=== PATIENT | female | born 1975 | race Caucasian/White ===

== ENCOUNTER 2018-03-27 05:27 | Emergency (ER) | END 2018-03-27 10:00 | disposition home or self-care (01) ==

== ENCOUNTER 2018-11-30 20:51 | Emergency (ER) | payer BC ==
[~2018-11-30] VITALS: Wt 70.2 kg
[~2018-11-30 20:51] MED LIST: ASPI-817 PO; BACL10TA PO; CEPH-443 PO; CLON-429 PO; CYCL10TA7 PO; ESCI10TA PO; HYDR-4011 PO; LOSA25TA12 PO; NAPR-985 PO
--- NOTE | 2018-11-30 23:07 | ERD ---
ER Documentation Chief Complaint Chief Complaint AP HPI The patient is a 43-year-old female, presenting to the ER because of right upper quadrant abdominal pain that began around 3 AM today, associated with vomiting and diarrhea and subjective fever. She feels bloated and flatulence. She denies chills, neck pain, chest pain, dyspnea, dysuria. She was seen earlier today and discharged around 5 AM from [facility], where she had an abdominal CT scan that showed fatty liver, otherwise unremarkable. She went to see her doctor today who prescribed her pain medication antibiotic Cipro for unknown reason. She returned to the ER because of persistent abdominal pain and diarrhea. She does not drink, smokes socially Past medical history: Panic disorder, anxiety disorder, depression, hypertension, narcolepsy Past surgical history: Tubal ligation, 3 ROS All systems reviewed and are negative except as per history of present illness. Medications Home Meds Active Scripts Loperamide Hcl* (Imodium*) 2 Mg Capsule, 2 MG PO QID PRN for DIARRHEA, #20 CAP MAX 16 mg/day Prov:TEJAS MORALES MD 12/01/18 Ondansetron (Ondansetron Odt) 4 Mg Tab.rapdis, 4 MG PO Q6H PRN for NAUSEA AND/OR VOMITING, #10 TAB Prov:TEJAS MORALES MD 12/01/18 Cyclobenzaprine Hcl* (Cyclobenzaprine Hcl*) 10 Mg Tablet, 10 MG PO TID, #15 TAB Prov:ANA LAURA HERNANDEZ PA-C 03/27/18 Hydrocodone/Acetaminophen ([place] 5-325 Tablet) 1 Each Tablet, 1 TAB PO Q6H PRN for PAIN, #7 TAB Prov:ANA LAURA HERNANDEZ PA-C 03/27/18 Naproxen* (Naprosyn*) 500 Mg Tablet, 500 MG PO BID PRN for PAIN AND/OR INFLAMMA TION, #30 TAB Prov:ANA LAURA HERNANDEZ PA-C 03/27/18 Reported Medications Ergocalciferol (Vitamin D2) (VITAMIN D2) 2,000 Unit Tablet, 2000 UNIT PO, TAB 12/01/18 Iron,Carbonyl/Vit C/Vit B12/Fa (IRON 100 PLUS TABLET) 1 Each Tablet, 1 EACH PO, TAB 12/01/18 Ibuprofen* (Ibuprofen*) 800 Mg Tab, 800 MG PO BID PRN for PAIN, TAB 12/01/18 Amphet Xam-Kdrhtf-T-Amphet (Adderall) 30 Mg Tablet, 30 MG PO DAILY, TAB 12/01/18 Cephalexin* (Keflex*) 500 Mg Capsule, 500 MG PO QID, CAP 10/22/14 Aspirin* (Aspirin* EC) 81 Mg Tablet.dr, 81 MG PO DAILY, TAB 10/22/14 Baclofen* (Baclofen*) 10 Mg Tablet, 10 MG PO DAILY, TAB 10/22/14 Clonazepam* (Klonopin*) 0.5 Mg Tab, 0.5 MG PO QHS PRN for SLEEP, TAB 10/22/14 Escitalopram Oxalate* (Lexapro*) 10 Mg Tablet, 10 MG PO DAILY, TAB 10/22/14 Losartan Potassium* (Losartan Potassium*) 25 Mg Tablet, 25 MG PO DAILY, TAB 10/22/14 Allergies Allergies: Coded Allergies: No Known Drug Allergies (Verified Allergy, Mild, 03/27/18) PMhx/Soc History of Surgery: Yes (, TUBALIGATION) Anesthesia Reaction: No Hx Neurological Disorder: No Hx Respiratory Disorders: No Hx Cardiac Disorders: Yes (HTN) Hx Psychiatric Problems: Yes (ANXIETY) Hx Miscellaneous Medical Probl: Yes (PANIC ATTACKS, DEPRESSION) Hx Alcohol Use: Yes (SOCIALLY) Hx Substance Use: No Hx Tobacco Use: Yes Physical Exam Vitals Vital Signs Date Temp Pulse Resp B/P (MAP) Pulse Ox O2 O2 Flow FiO2 Time Delivery Rate 11/30/18 98.4 86 20 133/89 100 Room Air 23:30 (104) 11/30/18 96.8 79 18 135/91 100 20:55 (106) Physical Exam Const: No acute distress. Head: Atraumatic. Eyes: Normal Conjunctiva. ENT: Normal External Ears, Nose and Mouth. Neck: Full range of motion. No meningismus. Resp: Clear to auscultation bilaterally. Cardio: Regular rate and rhythm. Abd: Soft, non distended, normal bowel sounds, mild right upper quadrant tenderness, no rigidity, rebound or CVA tenderness Skin: No petechiae or rashes. Back: No midline or flank tenderness. Ext: No cyanosis, or edema. Neur: Awake and alert. No focal deficit Psych: Normal Mood and Affect. Result Diagram: 12/01/1811312/01/18113 Results 24 hrs Laboratory Tests Test 12/01/18 00:03 12/01/18 00:04 12/01/18 00:20 12/01/18 00:49 Bedside Urine pH 5.5 (LAB) Bedside Urine Negative Protein (LAB) Bedside Urine Negative Glucose (UA) Bedside Urine Negative Ketones (LAB) Bedside Urine Negative Blood Bedside Urine Negative Nitrite (LAB) Bedside Urine Negative Leukocyte Esteras e (L POC Beta HCG, NEGATIVE Qualitative White Blood Count 4.7 10^3/ul 6.3 10^3/ul Red Blood Count 2.37 10^6/ul 3.25 10^6/ul Hemoglobin 5.3 g/dl 7.3 g/dl Hematocrit 18.4 % 24.8 % Mean Corpuscular 77.6 fl 76.3 fl Volume Mean Corpuscular 22.4 pg 22.5 pg Hemoglobin Mean Corpuscular 28.8 g/dl 29.4 g/dl Hemoglobin Concen t Red Cell 15.8 % 15.8 % Distribution Width Platelet Count 183 10^3/UL 283 10^3/UL Mean Platelet 8.5 fl 8.8 fl Volume Immature 0.200 % 0.200 % Granulocytes % Neutrophils % 75.2 % 75.4 % Lymphocytes % 13.6 % 15.2 % Monocytes % 7.6 % 6.2 % Eosinophils % 3.2 % 2.7 % Basophils % 0.2 % 0.3 % Nucleated Red 0.0 /100WBC 0.0 /100WBC Blood Cells % Immature 0.010 10^3/ul 0.010 10^3/ul Granulocytes # Neutrophils # 3.6 10^3/ul 4.8 10^3/ul Lymphocytes # 0.6 10^3/ul 1.0 10^3/ul Monocytes # 0.4 10^3/ul 0.4 10^3/ul Eosinophils # 0.2 10^3/ul 0.2 10^3/ul Basophils # 0.0 10^3/ul 0.0 10^3/ul Nucleated Red 0.0 10^3/ul 0.0 10^3/ul Blood Cells # Sodium Level 164 mmol/L Potassium Level 1.5 mmol/L Chloride Level 125 mmol/L Carbon Dioxide 13 mmol/L Level Anion Gap 26 Blood Urea 9 mg/dl Nitrogen Creatinine 0.22 mg/dl Est Glomerular > 60 mL/min Filtrat Rate mL/min Glucose Level 43 mg/dl Calcium Level 3.6 mg/dl Total Bilirubin 0.0 mg/dl Direct Bilirubin 0.00 mg/dl Indirect 0.0 mg/dl Bilirubin Aspartate Amino 12 IU/L Transf (AST/SGOT) Alanine 21 IU/L Aminotransferase (ALT/SGPT) Alkaline 33 IU/L Phosphatase Total Protein 3.2 g/dl Albumin 1.4 g/dl Globulin 1.80 g/dl Albumin/Globulin 0.77 Ratio Lipase 23 U/L Test 12/01/18 01:14 12/01/18 01:18 White Blood Count 9.1 10^3/ul Red Blood Count 4.28 10^6/ul Hemoglobin 9.6 g/dl Hematocrit 32.6 % Mean Corpuscular 76.2 fl Volume Mean Corpuscular 22.4 pg Hemoglobin Mean Corpuscular 29.4 g/dl Hemoglobin Concen t Red Cell 15.9 % Distribution Width Platelet Count 434 10^3/UL Mean Platelet 9.9 fl Volume Immature 0.300 % Granulocytes % Neutrophils % 75.2 % Lymphocytes % 14.7 % Monocytes % 6.5 % Eosinophils % 3.1 % Basophils % 0.2 % Nucleated Red 0.0 /100WBC Blood Cells % Immature 0.030 10^3/ul Granulocytes # Neutrophils # 6.9 10^3/ul Lymphocytes # 1.3 10^3/ul Monocytes # 0.6 10^3/ul Eosinophils # 0.3 10^3/ul Basophils # 0.0 10^3/ul Nucleated Red 0.0 10^3/ul Blood Cells # Sodium Level 140 mmol/L Potassium Level 3.4 mmol/L Chloride Level 107 mmol/L Carbon Dioxide 24 mmol/L Level Anion Gap 9 Blood Urea 16 mg/dl Nitrogen Creatinine 0.59 mg/dl Est Glomerular > 60 mL/min Filtrat Rate mL/min Glucose Level 91 mg/dl Calcium Level 8.8 mg/dl Magnesium Level 1.8 mg/dl Total Bilirubin 0.0 mg/dl Direct Bilirubin 0.00 mg/dl Indirect 0.0 mg/dl Bilirubin Aspartate Amino 32 IU/L Transf (AST/SGOT) Alanine 18 IU/L Aminotransferase (ALT/SGPT) Alkaline 97 IU/L Phosphatase Total Protein 7.4 g/dl Albumin 4.0 g/dl Globulin 3.40 g/dl Albumin/Globulin 1.17 Ratio Bedside Glucose 88 mg/dL Current Medications Medications Dose Sig/Gisele Start Time Status Last (Trade) Ordered Route PRN Stop Time Admin Dose Reason Admin Sodium 1,000 ml @ Q1H STAT 11/30/18 DC 11/30/18 Chloride 1,000 mls/hr IV 23:26 23:45 12/01/18 00:25 Ondansetron 4 mg ONCE STAT 11/30/18 DC 11/30/18 HCl (Zofran IV 23:26 23:46 Inj) 11/30/18 23:28 Potassium 40 meq ONCE STAT 12/01/18 UNV Chloride PO 03:34 (Klor-Con 20) 12/01/18 03:35 Loperamide 4 mg ONCE ONCE 12/01/18 UNV HCl PO 04:00 (Imodium Cap) 12/01/18 04:01 Procedures/[place] [id number] Radiology Main Line: [phone] DIAGNOSTIC IMAGING REPORT Patient: NIKKIE VARELA : 1975 Age: 43 Sex: F MR #: [id number] DOS: 12/01/18 2331 Ordering MD: TEJAS MORALES MD Location: E/R Room/Bed: PROCEDURE: Abdominal ultrasound, limited. CLINICAL INDICATION: Abdominal pain. TECHNIQUE: Multiple real-time images were acquired of the patient's right upper abdomen utilizing a high resolution transducer. COMPARISON: None FINDINGS: The liver demonstrates increased echogenicity and size measuring 18.6 cm. There is no focal mass or intrahepatic biliary ductal dilatation. The portal vein is patent. The gallbladder is not distended. No gallstones are identified. There is no pericholecystic fluid or gallbladder wall thickening. The common bile duct measures 3.5 mm in maximal dimension. The visualized portions of the pancreas are unremarkable. The pancreas is partially obscured by overlying bowel gas. No free fluid is identified. The right kidney is normal size and echogenicity measuring 10.3 cm. There is no focal renal mass or echogenic calculus identified. There is no obstructive uropathy. IMPRESSION: Enlarged liver with fatty infiltration. Pancreas partially obscured by overlying bowel gas. .Suraj Matthews MD, MD Date Time Electronically viewed and signed by .Suraj Matthews MD, on 12/01/2018 02:05 .T/ CC: TEJAS MORALES MD [id number] MEDICAL MAKING DECISION: The patient is a 43-year-old female, presenting with acute vomiting and diarrhea. Initially the CBC and a CMP were very abnormal; however the repeat CBC and CMP are within normal limit except for slightly anemic and slightly hypokalemic. She was treated with 1 L normal saline for clinical dehydration, Zofran 4 mg IV for nausea, potassium chloride 40 mEq p.o. for acute hypokalemia and Imodium 4 mg p.o. for acute diarrhea with good response. She is stable for outpatient follow-up The differential diagnoses considered include but are not limited to acute food poisoning, colitis, cholelithiasis, cholecystitis, choledocholithiasis, cholangitis, pancreatitis, hepatitis, gastritis, peptic ulcer disease, gastric ulcer, appendicitis, cystitis, diverticulitis, partial small bowel obstruction. Departure Diagnosis: Primary Impression: Nausea vomiting and diarrhea Additional Impressions: Hypokalemia Anemia Condition: Good Comments She was discharged with Imodium and Zofran ODT I discussed the findings with the patient. I advised the patient to follow-up with the primary physician in about 1-2 days, sooner if needed and return if any concern. Disclaimer: Inadvertent spelling and grammatical errors are likely due to EHR/dictation software use and do not reflect on the overall quality of patient care. Also, please note that the electronic time recorded on this note does not necessarily reflect the actual time of the patient encounter. TEJAS MORALES MD Nov 30, 2018 23:07
[2018-11-30] MEDS ORDERED: SOD CHLORIDE 0.9% 1,000 ML IV STA (23:26)
[2018-11-30] MEDS ORDERED: ONDANSETRON 4 MG INJ IV STA (23:26)
[2018-11-30 23:30] VITALS: BP 133/89; PULSE 86; RESP 20
[2018-12-01] MEDS ORDERED: IBUP-1545 PO (02:47)
[2018-12-01] MEDS ORDERED: ERGO2000 PO (02:47)
[2018-12-01] MEDS ORDERED: IRON1TAB78 PO (02:47)
[2018-12-01] MEDS ORDERED: ADDE30 PO (02:47)
[2018-12-01] MEDS ORDERED: ONDA4TAB14 PO (03:37)
[2018-12-01] MEDS ORDERED: LOPE2CAP PO (03:38)
[2018-12-01] MEDS ORDERED: POTASSIUM CHLORIDE (SR) 20 MEQ TAB PO ONE (03:45)
[2018-12-01] MEDS ORDERED: LOPERAMIDE 2 MG CAP PO ONE (04:00)
[2018-12-01] MEDS ORDERED: ONDANSETRON (ODT) 4 MG TAB ODT STA (05:00)
== END 2018-12-01 05:10 | disposition home or self-care (01) ==
LOC: E/R 20:51
DX: R11.2 Nausea with vomiting, unspecified (principal); R19.7 Diarrhea, unspecified; E87.6 Hypokalemia; D64.9 Anemia, unspecified; I10 Essential (primary) hypertension; Z87.891 Personal history of nicotine dependence; Z79.82 Long term (current) use of aspirin
CPT/HCPCS: 36415; 76705; 80053; 81003; 81025; 82962; 83690; 83735; 85025; 96374; 99285; J2405; J7030; Z7610

== ENCOUNTER 2018-12-05 11:44 | Inpatient (IN) | payer BC ==
[~2018-12-05] VITALS: Ht 152.4 cm; Wt 72.9 kg
[~2018-12-05 11:44] MED LIST changes: +ADDE30 PO; +ERGO2000 PO; +IBUP-1545 PO; +IRON1TAB78 PO; +LOPE2CAP PO; +ONDA4TAB14 PO
[2018-12-05] MEDS ORDERED: CEFTRIAXONE 1 GM/50 ML (PMX) 50 ML IVPB STA (11:55)
[2018-12-05] MEDS ORDERED: AZITHROMYCIN 500MG/NS (PMX) 250 ML IV STA (11:55)
[2018-12-05] MEDS ORDERED: SODIUM CHLORIDE 0.9% 1L BAG IV* STA (11:55)
[2018-12-05] MEDS ORDERED: LIDOCAINE 1% (MPF) 5 ML VIAL SC ONE (13:30)
[2018-12-05] MEDS ORDERED: POTASSIUM CHLORIDE (SR) 20 MEQ TAB PO STA (13:44)
--- NOTE | 2018-12-05 13:44 | ERD ---
ER Documentation Chief Complaint Chief Complaint RECENTLY DIAGNOSED W/ PNA. HYPOTENSIVE AND WEAK. HPI Very pleasant 43-year-old female. The patient describes at least 5-6 days of nausea vomiting and diarrhea. This is followed by several days of cough and congestion with recent diagnosis of community-acquired pneumonia treated with potentially doxycycline. The patient states over the past 24 hours she has had generalized decline, generalized malaise and feeling lightheaded upon standing. She still has a cough that is slightly productive. She denies any chest pain or pressure, no abdominal pain. ROS All systems reviewed and are negative except as per history of present illness. Medications Home Meds Reported Medications Omeprazole* (Omeprazole*) 20 Mg Capsule.dr, 20 MG PO AC BREAKFAST, #30 CAP 12/05/18 Ergocalciferol (Vitamin D2) (VITAMIN D2) 2,000 Unit Tablet, 2000 UNIT PO, TAB 04/22/18 Iron Bis-Gly/Fa/C/B12/Ca/Succ (IRON 21/7 TABLET) 1 Each Tablet, 1 EACH PO, TAB 04/22/18 Aspirin Ec (Aspir 81) 81 Mg Tablet.dr, 81 MG PO DAILY, #30 TAB 04/22/18 Losartan Potassium* (Losartan Potassium*) 25 Mg Tablet, 25 MG PO DAILY, TAB 04/22/18 Amphet Bmm-Wovqrq-Y-Amphet (Adderall XR) 30 Mg Cap.sr.24h, 30 MG PO DAILY, CAP 04/22/18 Escitalopram Oxalate* (Lexapro*) 20 Mg Tablet, 20 MG PO DAILY, #30 TAB 04/22/18 Discontinued Reported Medications Doxycline Hyclate* (Vibramycin*) 100 Mg Soln, 100 MG IVPB Q12, EA DILUTED IN 250 ML 12/05/18 Allergies Allergies: Coded Allergies: No Known Allergy (Unverified , 12/05/18) PMhx/Soc History of Surgery: No Anesthesia Reaction: No Hx Neurological Disorder: No Hx Respiratory Disorders: No Hx Cardiac Disorders: Yes (HYPERLIPIDEMIA) Hx Psychiatric Problems: Yes (PTSD, ANXIETY) Hx Miscellaneous Medical Probl: Yes (DM) Hx Alcohol Use: Yes (SOMETIMES) Hx Substance Use: No Hx Tobacco Use: Yes Smoking Status: Current every day smoker FmHx Family History: No diabetes Physical Exam Vitals Vital Signs Date Temp Pulse Resp B/P (MAP) Pulse Ox O2 O2 Flow FiO2 Time Delivery Rate 12/05/18 97.6 80 20 78/49 (59) 100 Room Air 13:46 12/05/18 98.1 76 16 83/51 (62) 99 12:47 Physical Exam General: Well developed, well nourished, no acute distress Head: Normocephalic, atraumatic. Eyes: Pupils equally reactive, EOM intact ENT: Dry mucous membranes Neck: Supple, no lymphadenopathy Respiratory: Scant rhonchi at the bases, no distress Cardiovascular: RRR, no murmurs, rubs, or gallops Abdominal: Soft, non-tender, non-distended, no peritoneal signs : Deferred MSK: No edema, no unilateral swelling, 5/5 strength Neurologic: Alert and oriented, moving all extremities, normal speech, no focal weakness, no cerebellar signs Skin: No rash Psych: Normal mood Result Diagram: 12/05/18 1222 12/05/18 1221 Results 24 hrs Laboratory Tests Test 12/05/18 12:21 12/05/18 12:22 12/05/18 12:26 Sodium Level 142 mmol/L Potassium Level 3.1 mmol/L Chloride Level 102 mmol/L Carbon Dioxide Level 32 mmol/L Anion Gap 8 Blood Urea Nitrogen 10 mg/dl Creatinine 0.63 mg/dl Est Glomerular Filtrat > 60 mL/min Rate mL/min Glucose Level 90 mg/dl Calcium Level 8.2 mg/dl Total Bilirubin 0.0 mg/dl Direct Bilirubin 0.00 mg/dl Indirect Bilirubin 0.0 mg/dl Aspartate Amino Transf (AST/SGOT) 34 IU/L Alanine 27 IU/L Aminotransferase (ALT/SGPT) Alkaline Phosphatase 80 IU/L Troponin I < 0.012 ng/ml Total Protein 6.5 g/dl Albumin 3.3 g/dl Globulin 3.20 g/dl Albumin/Globulin Ratio 1.03 Lipase 100 U/L White Blood Count 3.4 10^3/ul Red Blood Count 4.11 10^6/ul Hemoglobin 9.1 g/dl Hematocrit 31.3 % Mean Corpuscular Volume 76.2 fl Mean Corpuscular Hemoglobin 22.1 pg Mean Corpuscular 29.1 g/dl Hemoglobin Concent Red Cell Distribution Width 15.9 % Platelet Count 265 10^3/UL Mean Platelet Volume 9.5 fl Immature Granulocytes % 0.300 % Neutrophils % 57.5 % Segmented Neutrophils % (Manual) 46 % Band Neutrophils % (Manual) 8 % Lymphocytes % 32.7 % Lymphocytes % (Manual) 35 % Reactive Lymphocytes % (Manual) 2 % Monocytes % 7.7 % Monocytes % (Manual) 5 % Eosinophils % 1.5 % Eosinophils % (Manual) 1 % Basophils % 0.3 % Basophils % (Manual) 3 % Nucleated Red Blood Cells % 0.0 /100WBC Immature Granulocytes # 0.010 10^3/ul Neutrophils # 1.9 10^3/ul Neutrophils # (Manual) 1.6 10^3/ul Band Neutrophils # 0.2 10^3/ul Lymphocytes (Manual) 1.1 10^3/ul Lymphocytes # 1.1 10^3/ul Reactive Lymphocytes # 0.0 10^3/ul Monocytes # 0.3 10^3/ul Monocytes # (Manual) 0.1 10^3/ul Eosinophils # 0.1 10^3/ul Basophils # 0.0 10^3/ul Basophils # (Manual) 0.1 10^3/ul Nucleated Red Blood Cells # 0.0 10^3/ul Platelet Estimate NORMAL Giant Platelets 1 % Polychromasia 3+ Hypochromasia 2+ Poikilocytosis 1+ Anisocytosis 2+ Microcytosis 2+ Prothrombin Time 11.9 Sec Prothrombin Time Ratio 0.9 INR International 0.87 Normalized Ratio Activated Partial Thromboplast 26.4 Sec Time POC Venous Lactate 2.2 mmol/L Current Medications Medications Dose Sig/Gisele Start Time Status Last (Trade) Ordered Route PRN Stop Time Admin Dose Reason Admin Sodium 2,400 ml BOLUS OVER 2 12/05/18 DC 12/05/18 Chloride HOURS STAT 11:55 12:50 (NS) IV* 12/05/18 11:58 Ceftriaxone 50 ml @ ONCE STAT 12/05/18 DC 12/05/18 Sodium 100 mls/hr IVPB 11:55 12:50 12/05/18 12:24 Azithromycin 250 ml @ ONCE STAT 12/05/18 DC 12/05/18 250 mls/hr IV 11:55 13:25 12/05/18 12:54 Lidocaine 5 ml ONCE ONCE 12/05/18 DC (Xylocaine SC 13:30 1% (Mpf)) 12/05/18 13:31 Potassium 20 meq ONCE STAT 12/05/18 DC Chloride PO 13:44 (Klor-Con 20) 12/05/18 13:46 Procedures/MDM EKG, MONITORS, & DIAGNOSTIC IMAGING: EKG: I reviewed and interpreted a 12-lead EKG. Rhythm: Normal sinus rhythm ST Changes: No contiguous ST segment elevations T waves: No contiguous T wave inversions Impression: [No evidence of acute cardiac ischemia] CXR RADIOLOGY IMPRESSION: 1. Poor inspiration with discoid atelectasis seen at the lung bases. 2. Degenerative enthesopathy of the thoracic spine. LAB INTERPRETATION: * White count slightly low at 3.4, hemoglobin 9.1 * Chemistry with slightly low potassium of 3.1, oral repletion given. Lactic acid slightly elevated at 2.2, normal troponin. MEDICAL DECISION MAKING: The patient's presentation is concerning for sepsis. The patient was recently diagnosed with pneumonia. She has low blood pressure. However clinically she is extremely well-appearing. I believe more likely this is consistent with dehydration in the setting of nausea vomiting diarrhea and URI type symptoms. However fluid resuscitation, sepsis screening would be most appropriate. ER COURSE: * A 30 cc/kg bolus of saline was initiated. Blood cultures prior to antibiotics. Ceftriaxone and azithromycin provided for coverage of community acquired pneumonia. * She has a benign abdominal exam without concern for acute intraconal process. No evidence of hemorrhagic process. * Blood pressure does remain low in the 80s. However the patient is mentating well and otherwise feels okay. Lactic acid is reassuring at 2.2. * I do not believe the patient requires a central line at this time however PICC line has been ordered. The patient is still undergoing fluid resuscitation I believe is dehydrated. The patient may require another liter after the 30 cc/kg bolus of saline given level of dehydration. * Because of the patient's persistence of symptoms and blood pressure issues I believe inpatient hospital station for closer monitoring would be appropriate. CONSULTATION: [None] DISPOSITION PLAN: Intensive care unit given blood pressures issue but if the blood pressure improves downgraded telemetry would be most appropriate Accepting care team and consultations: I discussed the current laboratory data, diagnostic imaging and emergency care provided. Admitting team: Dr. Weller Admitting team indication: Insurance directed Sepsis Documentation: Patient's infectious symptoms have not stabilized and the patient is at risk of rapid decompensation. The patient will be admitted for careful hydration, antibiotic therapy, and infectious source control. SEVERE SEPSIS CRITERIA: Infectious source: Community acquired pneumonia End organ damage indicated by: [Lactate > 2.0 mmol/L Hypotension (SBP < 90 or >40 mmHG drop or MAP < 65) SEPSIS MANAGEMENT Time of recognition of sepsis: [Upon MD assessment]. Time of recognition of severe sepsis: 12:26 PM Time of recognition of septic shock: No septic shock at this time, still pending fluid resuscitation efforts 3 HOUR BUNDLE Blood cultures x 2 before broad-spectrum antibiotics: [Yes] 30 ml/kg NS bolus still pending completion at 1:44 PM Initial lactate 2.2 Repeat lactate pending repeat SEPTIC SHOCK ASSESSMENT at 1:44 PM: [No] lactic acid > 4.0 [No] Persistent hypotension (SBP < 90 or 40 mmHg drop, MAP < 65) however still pending full 30 mL/kg IV fluid bolus VOLUME REASSESSMENT FOR SEPTIC SHOCK: Still has not received full 30cc/kg bolus. Reevaluation Time: 2:04 PM Temperature of 97.6, heart rate 80, respiratory rate 20, blood pressure 78/49 pulse ox 100% on room air Heart [Regular rate & rhythm] Lungs [No crackles] Skin [Warm & dry] Cap Refill [Less than 2 seconds] Peripheral pulses [Radially present] PERSISTENT HYPOTENSION TREATMENT: Comfort care [No] Central line PICC line has been ordered Vasopressor started [Not required] still undergoing fluid resuscitation I considered further perfusion assessment with CVP measurement, SCVO2, bedside ultrasound volume assessment, passive leg raise, trial of further fluid bolus. And proceeded with [30 ml/kg fluid bolus of NSS, broad spectrum antibiotics, and admission.] CRITICAL CARE Critical care time 40 minutes Emergent fluid management while maintaining close respiratory support. Provision of immediate and broad-spectrum antibiotic therapy. Simultaneous assessment for possible sources in order to direct targeted therapy. Consideration for invasive and chemical support to prevent cardiopulmonary collapse. Critical care time is independent of procedures performed. At this time the patient does not require pressors. Patient is still undergoing fluid resuscitation, she is mentating well and extremely well-appearing. PICC team is en route. Departure Diagnosis: Primary Impression: Community acquired pneumonia Laterality: unspecified laterality Qualified Codes: J18.9 - Pneumonia, unspecified organism Additional Impressions: Severe sepsis Hypokalemia Dehydration Condition: LAURA Avelar MD Dec 05, 2018 13:44
[2018-12-05 18:21] VITALS: PULSE 80
[2018-12-05 18:30] VITALS: BP 112/74; PULSE 79; RESP 19
[2018-12-05 18:38] VITALS: BP 91/53; PULSE 83; RESP 19
[2018-12-05 19:45] VITALS: BP 103/58; PULSE 86; RESP 19
[2018-12-05 20:00] VITALS: PULSE 86
[2018-12-05] MEDS ORDERED: LOPERAMIDE HCL 1 MG/5 ML LIQUID (10 ML UD CUP) PO PRN (20:30)
[2018-12-05] MEDS: CIPROFLOXACIN 400MG/D5W 200 ML IVPB SCH (22:13)
[2018-12-05 22:46] VITALS: Ht 152.4 cm; Wt 72.9 kg
[2018-12-05] MEDS: POTASSIUM CHLORIDE 30 MEQ in SOD CHLORIDE 0.9% 1,000 ML IV SCH (23:09)
[2018-12-05] MEDS: metroNIDAZOLE 500 MG/NS (PMX) 100 ML IVPB SCH (23:10)
--- NOTE | 2018-12-05 23:33 | HP ---
DATE OF ADMISSION: 12/05/2018 CHIEF COMPLAINT: Vomiting, diarrhea and syncope. HISTORY OF PRESENT ILLNESS: The patient is a 43-year-old female with history of hypertension, narcol epsy and iron deficient anemia due to menorrhagia. She was in her usual state of health until about a week ago, when she started having vomiting and diarrhea. She did not seek immediate medical advice and today, she was feeling weak and passed out. The patient also had cough and congestion, and was recently diagnosed with community-acquired pneumonia which was treated with oral antibiotic, details not available. The patient reported that she was also feeling dizzy upon standing. The patient did not have any bleeding from any site. No reported neck pain. No reported headache. The patient did have mild abdominal cramps. No reported leg edema. No reported dysuria or hematuria. No reported f ocal weakness. No reported paresthesias. The rest of the systems is unremarkable. The patient was in the ER, was found to have blood pressure of 78, systolic. She was afebrile. The patient's lactic acid level was 1.6. The patient was clinically dehydrated and had symptomatic hypertension. The pa tient was given 30 mL per kg IV fluid. The patient's blood pressure improved. The patient was admit marvin on telemetry. Lab evaluation revealed potassium 3.1, bicarbonate of 32, indicating contraction m etabolic alkalosis. Liver enzymes were normal. White count was 3.4. The patient has 8 bands. UA w as unremarkable. Chest x-ray was unremarkable. The patient is being admitted for further evaluation and management. PAST SURGICAL HISTORY: None. SOCIAL HISTORY: No smoking or alcohol. FAMILY HISTORY: Noncontributory. PHYSICAL EXAMINATION: GENERAL: The patient is awake, alert, fairly oriented. VITAL SIGNS: Upon arrival in the ER, temperature 97.6, pulse 80, respirations 20, blood pressure 78/ 49, O2 100% room air. HEENT: No eye discharge or redness. Conjunctivae normal. Oropharynx clear. NECK: Supple. No mass or thyromegaly. CHEST: Fairly clear. CARDIOVASCULAR: S1, S2 normal. No murmur. ABDOMEN: Soft, nondistended and nontender. EXTREMITIES: No leg edema. NEUROLOGIC: The patient is awake, alert, fairly oriented with no gross focal deficit. LABORATORY DATA: As above. In addition, the patient's BUN was 10, creatinine 0.6. IMPRESSION: 1. Acute gastroenteritis, possible viral syndrome, bacterial etiology cannot be ruled out. 2. Symptomatic hypotension secondary to hypovolemia. 3. History of hypertension. 4. History of narcolepsy. 5. History of iron deficit anemia due to menorrhagia. PLAN: The patient will be admitted on telemetry floor. The patient will be given IV fluid, IV Cipro , IV Flagyl and symptomatic treatment. Will replace potassium. The patient takes aspirin at home du e to history of angina, although she is not sure whether she has any definitive diagnosis of CAD. Th e patient also takes Lexapro for depression which will be continued. Further recommendation will dep end upon patient's hospital course. If patient's symptoms do not improve by tomorrow, will obtain a GI consultation. Dictated By: SCOUT VERNON/MAYRA Conf#: [id number] DID#: [id number]
[2018-12-06] VITALS (11 sets, daily range): BP systolic 103–136; BP diastolic 59–93; PULSE 72–97; RESP 18–20
[2018-12-06] MEDS: ALPRAZOLAM 0.25 MG TAB PO PRN ×3 (03:34→21:06)
[2018-12-06] MEDS: GUAIFENESIN/DM 5ML CUP PO PRN ×3 (03:34→22:18)
[2018-12-06] MEDS ORDERED: PANTOPRAZOLE (EC) 40 MG TAB PO ONE (04:27)
[2018-12-06] MEDS: PANTOPRAZOLE (EC) 40 MG TAB PO SCH (05:43)
[2018-12-06] MEDS: metroNIDAZOLE 500 MG/NS (PMX) 100 ML IVPB SCH ×3 (05:44→21:09)
[2018-12-06] MEDS: CIPROFLOXACIN 400MG/D5W 200 ML IVPB SCH ×2 (09:07→21:09)
[2018-12-06] MEDS: ESCITALOPRAM 10 MG TAB PO SCH (09:08)
[2018-12-06] MEDS ORDERED: POTASSIUM CHLORIDE 100 ML IVPB ONE (10:30)
[2018-12-06] MEDS ORDERED: POTASSIUM CHLORIDE 50 ML IVPB ONE (10:30)
[2018-12-06] MEDS: POTASSIUM CHLORIDE 30 MEQ in SOD CHLORIDE 0.9% 1,000 ML IV SCH ×2 (11:32→18:13)
[2018-12-06] MEDS: POTASSIUM CHLORIDE 50 ML IVPB SCH ×3 (12:48→18:36)
--- NOTE | 2018-12-06 12:53 | PN ---
Date/Time of Note Date/Time of Note DATE: 12/06/18 TIME: 12:52 Assessment/Plan VTE [place] [facility] [place]: 3 [place] [facility] [place] Yes Pharmacological prophylaxis: NA/contraindicated Pharm contraindication: bleeding Lines/Catheters IV C[facility]ter Type (from [facility]): Saline Lock Assessment/Plan Hospital Course Patient complains of occasional nausea denies any vomiting complains of generalized weakness, continue IV fluids and antibiotics, CBC and BMP tomorrow. Assessment/Plan - Acute gastroenteritis, possible viral syndrome, follow-up on stool for C. difficile - Symptomatic hypotension secondary to hypovolemia. - History of hypertension. - History of narcolepsy. - History of iron deficit anemia due to menorrhagia. Further recommendations based on clinical course. Plan of care discussed with Dr. Weller. Result Diagram: 12/05/18212412/05/182124 Results 24hrs Laboratory Tests Test 12/05/18 14:34 12/05/18 17:05 12/05/18 21:25 Urine Color STRAW Urine Clarity CLEAR Urine pH 6.0 Urine Specific [place] 1.004 Urine Ketones NEGATIVE Urine Nitrite NEGATIVE Urine Bilirubin NEGATIVE Urine Urobilinogen NEGATIVE Urine Leukocyte Esterase NEGATIVE Urine Hemoglobin NEGATIVE Urine Glucose NEGATIVE Urine Total Protein NEGATIVE POC Beta HCG, Qualitative NEGATIVE Lactic Acid Level 1.6 White Blood Count 3.0 L Red Blood Count 3.74 L Hemoglobin 8.4 L Hematocrit 28.2 L Mean Corpuscular Volume 75.4 L Mean Corpuscular Hemoglobin 22.5 L Mean Corpuscular Hemoglobin Concent 29.8 L Red Cell Distribution Width 15.8 H Platelet Count 249 Mean Platelet Volume 8.9 Immature Granulocytes % 0.300 Neutrophils % Segmented Neutrophils % (Manual) 39 Band Neutrophils % (Manual) 3 Lymphocytes % Lymphocytes % (Manual) 51 Monocytes % Monocytes % (Manual) 6 Eosinophils % Eosinophils % (Manual) 1 Basophils % Nucleated Red Blood Cells % 0.0 Immature Granulocytes # 0.010 Neutrophils # Neutrophils # (Manual) 1.2 L Band Neutrophils # 0.0 Lymphocytes (Manual) 1.5 Lymphocytes # Monocytes # Monocytes # (Manual) 0.1 L Eosinophils # Basophils # Nucleated Red Blood Cells # Platelet Estimate NORMAL Giant Platelets 2 H Polychromasia 1+ Anisocytosis 2+ Microcytosis 2+ Sodium Level 145 H Potassium Level 3.2 L Chloride Level 110 Carbon Dioxide Level 27 Anion Gap 8 Blood Urea Nitrogen 8 Creatinine 0.59 Est Glomerular Filtrat Rate mL/min > 60 Glucose Level 105 Calcium Level 7.6 L Magnesium Level 1.8 Exam/Review of Systems Vital Signs Vitals Vital Signs Date Temp Pulse Resp B/P (MAP) Pulse Ox O2 O2 Flow FiO2 Time Delivery Rate 12/06/18 98.3 74 18 133/92 98 Room Air 11:38 (106) Intake and Output 12/05/18 12/05/18 12/06/18 1515:00 23:00 07:00 IntakeIntake Total 50 ml 1352 ml BalanceBalance 50 ml 1352 ml Exam Constitutional: alert, oriented Head: normocephalic Neck: supple Respiratory: clear to auscultation Cardiovascular: regular rate and rhythm Gastrointestinal: soft, non-tender Extremities: normal pulses Neurological: nl mental status Skin: nl turgor Medications Medications Current Medications Escitalopram Oxalate (Lexapro) 20 mg DAILY PO Last administered on 12/06/18at 09:08; Admin Dose 20 MG; Start 12/06/18 at 09:00 Pantoprazole (Protonix Tab) 40 mg AC BREAKFAST PO Last administered on 12/06/18at 05:43; Admin Dose 40 MG; Start 12/06/18 at 07:00 Potassium Chloride 30 meq/ Sodium Chloride 1,015 ml @ 75 mls/hr [id number] IV Last administered on 12/05/18at 23:09; Admin Dose 75 MLS/HR; Start 12/05/18 at 22:00 Ciprofloxacin/ Dextrose 200 ml @ 200 mls/hr Q12 IVPB Last administered on 12/06/18at 09:07; Admin Dose 200 MLS/HR; Start 12/05/18 at 21:00 Metronidazole 100 ml @ 100 mls/hr Q8 IVPB Last administered on 12/06/18at 05:44; Admin Dose 100 MLS/HR; Start 12/05/18 at 22:00 Ondansetron HCl (Zofran Inj) 4 mg Q4H PRN IV NAUSEA AND/OR VOMITING; Start 12/05/18 at 20:30 Acetaminophen (Tylenol Tab) 650 mg Q4H PRN PO MILD PAIN(1-3)OR ELEVATED TEMP; Start 12/05/18 at 20:30 Loperamide HCl (Imodium) 4 mg Q4 PRN PO diarrhea; Start 12/05/18 at 20:30 Influenza Virus Vaccine Quadrival (Fluzone) 0.5 ml ONCE ONCE IM* ; Start 12/07/18 at 10:00; Stop 12/07/18 at 10:01 Alprazolam (Xanax) 0.25 mg Q6H PRN PO ANXIETY Last administered on 12/06/18at 03:34; Admin Dose 0.25 MG; Start 12/06/18 at 03:00 Guaifenesin/ Dextromethorphan (Robitussin Dm Liquid Cup) 10 ml Q4H PRN PO Cough Last administered on 12/06/18at 09:08; Admin Dose 10 ML; Start 12/06/18 at 03:00 IV Flush (NS 10 ml) 10 ml PRN PRN IV FLUSH LINE; Start 12/06/18 at 10:00 Potassium Chloride 50 ml @ 50 mls/hr Q1H IVPB ; Start 12/06/18 at 10:48; Stop 12/06/18 at 13:47 ZAINAB LIN Dec 06, 2018 12:53
[2018-12-06] MEDS: ACETAMINOPHEN 325 MG TAB PO PRN (22:24)
[2018-12-06] MEDS: KETOROLAC 30 MG INJ IV PRN (23:54)
[2018-12-07] VITALS (9 sets, daily range): BP systolic 121–130; BP diastolic 73–80; PULSE 59–74; RESP 18–20
[2018-12-07] MEDS: metroNIDAZOLE 500 MG/NS (PMX) 100 ML IVPB SCH ×3 (05:32→22:15)
[2018-12-07] MEDS: PANTOPRAZOLE (EC) 40 MG TAB PO SCH (05:32)
[2018-12-07] MEDS: KETOROLAC 30 MG INJ IV PRN (07:38)
[2018-12-07] MEDS: CIPROFLOXACIN 400MG/D5W 200 ML IVPB SCH ×2 (08:25→20:47)
[2018-12-07] MEDS: ESCITALOPRAM 10 MG TAB PO SCH (08:28)
[2018-12-07] MEDS ORDERED: INFLUENZA VIRUS VACCINE 0.5 ML (DISPENSING) IM* ONE (10:00)
--- NOTE | 2018-12-07 11:30 | PN ---
Date/Time of Note Date/Time of Note DATE: 12/07/18 TIME: 11:26 Assessment/Plan VTE Prophylaxis Risk score (from Ns)>0 risk: 4 SCD applied (from [facility] [place]): Yes Pharmacological prophylaxis: NA/contraindicated, other Pharm contraindication: other Lines/Catheters IV Catheter Type (from [facility]): PICC Line Central line still needed: Yes Assessment/Plan Hospital Course Patient's complaints of severe headache and currently was taken to MRI for MRI of the brain. Per JENNIFER Dowling, patient was able to tolerate diet no nausea and vomiting currently no diarrhea however patient has 6 BMs over the last 24 hours. Patient remains hemodynamically stable, afebrile. Assessment/Plan - Acute gastroenteritis, possible viral syndrome, follow-up on stool for C. diff icile. Continue Flagyl and Cipro. - Symptomatic hypotension secondary to hypovolemia. - History of hypertension. - History of narcolepsy. - History of iron deficit anemia due to menorrhagia. Further recommendations based on clinical course. Plan of care discussed with Dr. Weller. Result Diagram: 12/07/18 0529 12/07/18 0529 Results 24hrs Laboratory Tests Test 12/07/18 05:29 White Blood Count 3.8 #L Red Blood Count 3.43 L Hemoglobin 7.6 L Hematocrit 25.6 L Mean Corpuscular Volume 74.6 L Mean Corpuscular Hemoglobin 22.2 L Mean Corpuscular Hemoglobin Concent 29.7 L Red Cell Distribution Width 15.7 H Platelet Count 209 Mean Platelet Volume 9.5 Immature Granulocytes % 0.300 Neutrophils % Segmented Neutrophils % (Manual) 41 Band Neutrophils % (Manual) 6 H Lymphocytes % Lymphocytes % (Manual) 48 Monocytes % Monocytes % (Manual) 4 Eosinophils % Eosinophils % (Manual) 1 Basophils % Nucleated Red Blood Cells % 0.0 Immature Granulocytes # 0.010 Neutrophils # Neutrophils # (Manual) 1.6 Band Neutrophils # 0.2 Lymphocytes (Manual) 1.8 Lymphocytes # Monocytes # Monocytes # (Manual) 0.1 L Eosinophils # Basophils # Nucleated Red Blood Cells # Platelet Estimate NORMAL Giant Platelets 3 H Polychromasia 1+ Hypochromasia 1+ Poikilocytosis 1+ Anisocytosis 2+ Microcytosis 2+ Ovalocytes 1+ Sodium Level 136 Potassium Level 4.2 Chloride Level 103 Carbon Dioxide Level 28 Anion Gap 5 Blood Urea Nitrogen 10 Creatinine 0.51 Est Glomerular Filtrat Rate mL/min > 60 Glucose Level 98 Calcium Level 8.0 L Exam/Review of Systems Vital Signs Vitals Vital Signs Date Temp Pulse Resp B/P (MAP) Pulse Ox O2 O2 Flow FiO2 Time Delivery Rate 12/07/18 61 08:00 12/07/18 98.6 20 130/80 96 03:42 (97) 12/06/18 Room Air 15:59 Intake and Output 12/06/18 12/06/18 12/07/18 1414:59 22:59 06:59 IntakeIntake Total 200 ml 2100 ml 1490 ml BalanceBalance 200 ml 2100 ml 1490 ml Medications Medications Current Medications Escitalopram Oxalate (Lexapro) 20 mg DAILY PO Last administered on 12/07/18at 08:28; Admin Dose 20 MG; Start 12/06/18 at 09:00 Pantoprazole (Protonix Tab) 40 mg AC BREAKFAST PO Last administered on 12/07/18at 05:32; Admin Dose 40 MG; Start 12/06/18 at 07:00 Potassium Chloride 30 meq/ Sodium Chloride 1,015 ml @ 75 mls/hr [id number] IV Last administered on 12/06/18at 18:13; Admin Dose 75 MLS/HR; Start 12/05/18 at 22:00 Ciprofloxacin/ Dextrose 200 ml @ 200 mls/hr Q12 IVPB Last administered on 12/07/18at 08:25; Admin Dose 200 MLS/HR; Start 12/05/18 at 21:00 Metronidazole 100 ml @ 100 mls/hr Q8 IVPB Last administered on 12/07/18at 05:32; Admin Dose 100 MLS/HR; Start 12/05/18 at 22:00 Ondansetron HCl (Zofran Inj) 4 mg Q4H PRN IV NAUSEA AND/OR VOMITING; Start 12/05/18 at 20:30 Acetaminophen (Tylenol Tab) 650 mg Q4H PRN PO MILD PAIN(1-3)OR ELEVATED TEMP Last administered on 12/06/18at 22:24; Admin Dose 650 MG; Start 12/05/18 at 20:30 Loperamide HCl (Imodium) 4 mg Q4 PRN PO diarrhea; Start 12/05/18 at 20:30 Alprazolam (Xanax) 0.25 mg Q6H PRN PO ANXIETY Last administered on 12/06/18at 21:06; Admin Dose 0.25 MG; Start 12/06/18 at 03:00 Guaifenesin/ Dextromethorphan (Robitussin Dm Liquid Cup) 10 ml Q4H PRN PO Cough Last administered on 12/06/18at 22:18; Admin Dose 10 ML; Start 12/06/18 at 03:00 IV Flush (NS 10 ml) 10 ml PRN PRN IV FLUSH LINE; Start 12/06/18 at 10:00 Ketorolac Tromethamine (Toradol) 30 mg Q6H PRN IV PAIN LEVEL 1-3 Last administered on 12/07/18at 07:38; Admin Dose 30 MG; Start 12/07/18 at 00:00; Stop 12/10/18 at 00:00 ZAINAB LIN Dec 07, 2018 11:30
[2018-12-07] MEDS: POTASSIUM CHLORIDE 30 MEQ in SOD CHLORIDE 0.9% 1,000 ML IV SCH (14:36)
[2018-12-07] MEDS: ACETAMINOPHEN 325 MG TAB PO PRN ×2 (15:16→21:30)
[2018-12-07] MEDS: ALPRAZOLAM 0.25 MG TAB PO PRN (15:53)
[2018-12-07] MEDS: ONDANSETRON 4 MG INJ IV PRN ×2 (15:53→21:28)
[2018-12-08] VITALS (10 sets, daily range): BP systolic 102–127; BP diastolic 57–65; PULSE 59–88; RESP 16–18
[2018-12-08] MEDS: KETOROLAC 30 MG INJ IV PRN ×2 (03:13→17:03)
[2018-12-08] MEDS: POTASSIUM CHLORIDE 30 MEQ in SOD CHLORIDE 0.9% 1,000 ML IV SCH ×2 (05:18→17:21)
[2018-12-08] MEDS: PANTOPRAZOLE (EC) 40 MG TAB PO SCH (06:14)
[2018-12-08] MEDS: metroNIDAZOLE 500 MG/NS (PMX) 100 ML IVPB SCH ×2 (06:14→13:23)
[2018-12-08] MEDS: CIPROFLOXACIN 400MG/D5W 200 ML IVPB SCH (07:56)
[2018-12-08] MEDS: ESCITALOPRAM 10 MG TAB PO SCH (07:57)
[2018-12-08] MEDS: ALPRAZOLAM 0.25 MG TAB PO PRN (10:38)
[2018-12-08] MEDS: ONDANSETRON 4 MG INJ IV PRN (10:38)
[2018-12-08] MEDS: SOLIFENACIN 5 MG TAB PO SCH (14:04)
--- NOTE | 2018-12-08 14:15 | PN ---
Date/Time of Note Date/Time of Note DATE: 12/08/18 TIME: 14:14 Assessment/Plan VTE Prophylaxis [place] [facility] [place] risk: 3 SCD applied (from [facility] [place]): No SCD contraindicated: other Pharmacological prophylaxis: other Pharm contraindication: other Lines/Catheters IV Catheter Type (from [facility]): PICC Line Central line still needed: Yes Assessment/Plan Assessment/Plan - Acute gastroenteritis, possible viral syndrome, follow-up on stool for C. d ifficile. Continue Flagyl and Cipro. - Symptomatic hypotension secondary to hypovolemia. - History of hypertension. - History of narcolepsy. - History of iron deficit anemia due to menorrhagia. Further recommendations based on clinical course. Plan of care discussed with Dr. Weller. Result Diagram: 12/08/18 0516 12/08/18 0516 Results 24hrs Laboratory Tests Test 12/08/18 05:16 White Blood Count 4.2 L Red Blood Count 3.59 L Hemoglobin 7.9 L Hematocrit 26.7 L Mean Corpuscular Volume 74.4 L Mean Corpuscular Hemoglobin 22.0 L Mean Corpuscular Hemoglobin Concent 29.6 L Red Cell Distribution Width 15.2 H Platelet Count 238 Mean Platelet Volume 9.9 Immature Granulocytes % 0.200 Neutrophils % 52.9 Lymphocytes % 37.6 Monocytes % 6.2 Eosinophils % 2.9 Basophils % 0.2 Nucleated Red Blood Cells % 0.0 Immature Granulocytes # 0.010 Neutrophils # 2.2 Lymphocytes # 1.6 Monocytes # 0.3 Eosinophils # 0.1 Basophils # 0.0 Nucleated Red Blood Cells # 0.0 Sodium Level 137 Potassium Level 3.5 Chloride Level 102 Carbon Dioxide Level 28 Anion Gap 7 Blood Urea Nitrogen 14 Creatinine 0.57 Est Glomerular Filtrat Rate mL/min > 60 Glucose Level 114 Calcium Level 7.8 L Exam/Review of Systems Vital Signs Vitals Vital Signs Date Temp Pulse Resp B/P (MAP) Pulse Ox O2 O2 Flow FiO2 Time Delivery Rate 12/08/18 67 12:00 12/08/18 98.3 16 127/65 96 11:43 (85) 12/06/18 Room Air 15:59 Intake and Output 12/07/18 12/07/18 12/08/18 1414:59 22:59 06:59 IntakeIntake Total 300 ml 500 ml 1400 ml BalanceBalance 300 ml 500 ml 1400 ml Medications Medications Current Medications Escitalopram Oxalate (Lexapro) 20 mg DAILY PO Last administered on 12/08/18 07:57; Admin Dose 20 MG; Start 12/06/18 at 09:00 Pantoprazole (Protonix Tab) 40 mg AC BREAKFAST PO Last administered on 12/08/18 06:14; Admin Dose 40 MG; Start 12/06/18 at 07:00 Potassium Chloride 30 meq/ Sodium Chloride 1,015 ml @ 75 mls/hr [id number] IV Last administered on 12/08/18 05:18; Admin Dose 75 MLS/HR; Start 12/05/18 at 22:00 Ciprofloxacin/ Dextrose 200 ml @ 200 mls/hr Q12 IVPB Last administered on 12/08/18 07:56; Admin Dose 200 MLS/HR; Start 12/05/18 at 21:00 Metronidazole 100 ml @ 100 mls/hr Q8 IVPB Last administered on 12/08/18 13:23; Admin Dose 100 MLS/HR; Start 12/05/18 at 22:00 Ondansetron HCl (Zofran Inj) 4 mg Q4H PRN IV NAUSEA AND/OR VOMITING Last administered on 12/08/18 10:38; Admin Dose 4 MG; Start 12/05/18 at 20:30 Acetaminophen (Tylenol Tab) 650 mg Q4H PRN PO MILD PAIN(1-3)OR ELEVATED TEMP Last administered on 12/07/18 21:30; Admin Dose 650 MG; Start 12/05/18 at 20:30 Loperamide HCl (Imodium) 4 mg Q4 PRN PO diarrhea; Start 12/05/18 at 20:30 Alprazolam (Xanax) 0.25 mg Q6H PRN PO ANXIETY Last administered on 12/08/18 10:38; Admin Dose 0.25 MG; Start 12/06/18 at 03:00 Guaifenesin/ Dextromethorphan (Robitussin Dm Liquid Cup) 10 ml Q4H PRN PO Cough Last administered on 12/06/18 22:18; Admin Dose 10 ML; Start 12/06/18 at 03:00 IV Flush (NS 10 ml) 10 ml PRN PRN IV FLUSH LINE; Start 12/06/18 at 10:00 Ketorolac Tromethamine (Toradol) 30 mg Q6H PRN IV PAIN LEVEL 1-3 Last administered on 12/08/18 03:13; Admin Dose 30 MG; Start 12/07/18 at 00:00; Stop 12/10/18 at 00:00 Solifenacin (Vesicare) 10 mg DAILY PO Last administered on 12/08/18at 14:04; Admin Dose 10 MG; Start 12/08/18 at 13:00 JEANNETTE WESTFALL Dec 08, 2018 14:15
[2018-12-08] MEDS: CIPROFLOXACIN 500 MG TAB PO SCH (17:21)
[2018-12-08] MEDS: metroNIDAZOLE 500 MG TAB PO SCH (21:28)
[2018-12-09] VITALS (11 sets, daily range): BP systolic 101–125; BP diastolic 54–76; PULSE 55–72; RESP 16–20
[2018-12-09] MEDS: ALPRAZOLAM 0.25 MG TAB PO PRN ×2 (00:20→22:30)
[2018-12-09] MEDS: KETOROLAC 30 MG INJ IV PRN (00:24)
[2018-12-09] MEDS: POTASSIUM CHLORIDE 30 MEQ in SOD CHLORIDE 0.9% 1,000 ML IV SCH (05:49)
[2018-12-09] MEDS: CIPROFLOXACIN 500 MG TAB PO SCH ×2 (05:49→17:31)
[2018-12-09] MEDS: PANTOPRAZOLE (EC) 40 MG TAB PO SCH (07:19)
[2018-12-09] MEDS: metroNIDAZOLE 500 MG TAB PO SCH ×3 (08:33→20:47)
[2018-12-09] MEDS: SOLIFENACIN 5 MG TAB PO SCH (08:33)
[2018-12-09] MEDS: ESCITALOPRAM 10 MG TAB PO SCH (08:33)
[2018-12-09] MEDS: FERROUS SULFATE (EC) 325 MG TAB PO SCH ×2 (12:25→20:47)
--- NOTE | 2018-12-09 16:56 | PN ---
Date/Time of Note Date/Time of Note DATE: 12/09/18 TIME: 16:55 Assessment/Plan VTE Prophylaxis Risk score (from [facility])>0 risk: 4 SCD applied (from [facility]): No Lines/Catheters IV Catheter Type (from [facility]): PICC Line Assessment/Plan Assessment/Plan - Acute gastroenteritis, possible viral syndrome, follow-up on stool for C. difficile. Continue Flagyl and Cipro. - Symptomatic hypotension secondary to hypovolemia. - History of hypertension. - History of narcolepsy. - History of iron deficit anemia due to menorrhagia. Further recommendations based on clinical course. Plan of care discussed with Dr. Weller. Result Diagram: 12/09/18 0549 12/09/18 0549 Results 24hrs Laboratory Tests Test 12/09/18 05:49 White Blood Count 5.3 # Red Blood Count 3.78 L Hemoglobin 8.2 L Hematocrit 27.9 L Mean Corpuscular Volume 73.8 L Mean Corpuscular Hemoglobin 21.7 L Mean Corpuscular Hemoglobin Concent 29.4 L Red Cell Distribution Width 15.5 H Platelet Count 278 Mean Platelet Volume 10.1 Immature Granulocytes % 0.600 H Neutrophils % 47.9 Lymphocytes % 41.0 Monocytes % 7.1 Eosinophils % 3.0 Basophils % 0.4 Nucleated Red Blood Cells % 0.0 Immature Granulocytes # 0.030 Neutrophils # 2.6 Lymphocytes # 2.2 Monocytes # 0.4 Eosinophils # 0.2 Basophils # 0.0 Nucleated Red Blood Cells # 0.0 Sodium Level 136 Potassium Level 4.2 Chloride Level 103 Carbon Dioxide Level 27 Anion Gap 6 Blood Urea Nitrogen 15 Creatinine 0.58 Est Glomerular Filtrat Rate mL/min > 60 Glucose Level 93 Calcium Level 8.1 L Exam/Review of Systems Vital Signs Vitals Vital Signs Date Temp Pulse Resp B/P (MAP) Pulse Ox O2 O2 Flow FiO2 Time Delivery Rate 12/09/18 98.0 64 20 101/60 98 16:00 (74) 12/06/18 Room Air 15:59 Intake and Output 12/08/18 12/08/18 12/09/18 1414:59 22:59 06:59 IntakeIntake Total 100 ml 2250 ml 1250 ml BalanceBalance 100 ml 2250 ml 1250 ml Medications Medications Current Medications Escitalopram Oxalate (Lexapro) 20 mg DAILY PO Last administered on 12/09/18 08:33; Admin Dose 20 MG; Start 12/06/18 at 09:00 Pantoprazole (Protonix Tab) 40 mg AC BREAKFAST PO Last administered on 12/09/18 07:19; Admin Dose 40 MG; Start 12/06/18 at 07:00 Potassium Chloride 30 meq/ Sodium Chloride 1,015 ml @ 75 mls/hr [id number] IV Last administered on 12/09/18 05:49; Admin Dose 75 MLS/HR; Start 12/05/18 at 22:00 Ondansetron HCl (Zofran Inj) 4 mg Q4H PRN IV NAUSEA AND/OR VOMITING Last administered on 12/08/18 10:38; Admin Dose 4 MG; Start 12/05/18 at 20:30 Acetaminophen (Tylenol Tab) 650 mg Q4H PRN PO MILD PAIN(1-3)OR ELEVATED TEMP Last administered on 12/07/18 21:30; Admin Dose 650 MG; Start 12/05/18 at 20:30 Loperamide HCl (Imodium) 4 mg Q4 PRN PO diarrhea; Start 12/05/18 at 20:30 Alprazolam (Xanax) 0.25 mg Q6H PRN PO ANXIETY Last administered on 12/09/18 00:20; Admin Dose 0.25 MG; Start 12/06/18 at 03:00 Guaifenesin/ Dextromethorphan (Robitussin Dm Liquid Cup) 10 ml Q4H PRN PO Cough Last administered on 12/06/18 22:18; Admin Dose 10 ML; Start 12/06/18 at 03:00 IV Flush (NS 10 ml) 10 ml PRN PRN IV FLUSH LINE; Start 12/06/18 at 10:00 Ketorolac Tromethamine (Toradol) 30 mg Q6H PRN IV PAIN LEVEL 1-3 Last administered on 12/09/18 00:24; Admin Dose 30 MG; Start 12/07/18 at 00:00; Stop 12/10/18 at 00:00 Solifenacin (Vesicare) 10 mg DAILY PO Last administered on 12/09/18 08:33; Admin Dose 10 MG; Start 12/08/18 at 13:00 Ciprofloxacin (Cipro) 500 mg BID@06,18 PO Last administered on 12/09/18at 05:49; Admin Dose 500 MG; Start 12/08/18 at 18:00 Metronidazole (Flagyl) 500 mg TID PO Last administered on 12/09/18at 12:25; Admin Dose 500 MG; Start 12/08/18 at 21:00 Ferrous Sulfate (Ferrous Sulfate (Ec)) 325 mg BID PO Last administered on 12/09/18at 12:25; Admin Dose 325 MG; Start 12/09/18 at 10:30 JEANNETTE WESTFALL Dec 09, 2018 16:56
[2018-12-09] MEDS: ONDANSETRON 4 MG INJ IV PRN (19:48)
[2018-12-09] MEDS ORDERED: ALTEPLASE (CATHFLO) 2 MG INJ CATHETER PRN (23:30)
[2018-12-10] VITALS (11 sets, daily range): BP systolic 89–123; BP diastolic 50–76; PULSE 58–120; RESP 17–18
[2018-12-10] MEDS: CIPROFLOXACIN 500 MG TAB PO SCH (07:25)
[2018-12-10] MEDS: PANTOPRAZOLE (EC) 40 MG TAB PO SCH (07:25)
[2018-12-10] MEDS: metroNIDAZOLE 500 MG TAB PO SCH ×2 (09:06→12:09)
[2018-12-10] MEDS: SOLIFENACIN 5 MG TAB PO SCH (09:06)
[2018-12-10] MEDS: FERROUS SULFATE (EC) 325 MG TAB PO SCH (09:06)
[2018-12-10] MEDS: ESCITALOPRAM 10 MG TAB PO SCH (09:07)
--- NOTE | 2018-12-10 15:08 | DS ---
Date/Time of Note Date/Time of Note DATE: 12/10/18 TIME: 15:08 Discharge Summary Admission/Discharge Info Admit Date/Time Dec 05, 2018 at 14:03 Discharge Date/Time Home Meds Active Scripts Loperamide Hcl* (Imodium*) 2 Mg Capsule, 2 MG PO QID PRN for DIARRHEA, #20 CAP MAX 16 mg/day Prov:TEJAS MORALES MD 12/01/18 Ondansetron (Ondansetron Odt) 4 Mg Tab.rapdis, 4 MG PO Q6H PRN for NAUSEA AND/OR VOMITING, #10 TAB Prov:TEJAS MORALES MD 12/01/18 Cyclobenzaprine Hcl* (Cyclobenzaprine Hcl*) 10 Mg Tablet, 10 MG PO TID, #15 TAB Prov:ANA LAURA HERNANDEZ PA-C 03/27/18 Hydrocodone/Acetaminophen ([place] 5-325 Tablet) 1 Each Tablet, 1 TAB PO Q6H PRN for PAIN, #7 TAB Prov:ANA LAURA HERNANDEZ PA-C 03/27/18 Naproxen* (Naprosyn*) 500 Mg Tablet, 500 MG PO BID PRN for PAIN AND/OR INFLAMMATION, #30 TAB Prov:ANA LAURA HERNANDEZ PA-C 03/27/18 Reported Medications Ergocalciferol (Vitamin D2) (VITAMIN D2) 2,000 Unit Tablet, 2000 UNIT PO, TAB 12/01/18 Iron,Carbonyl/Vit C/Vit B12/Fa (IRON 100 PLUS TABLET) 1 Each Tablet, 1 EACH PO, TAB 12/01/18 Ibuprofen* (Ibuprofen*) 800 Mg Tab, 800 MG PO BID PRN for PAIN, TAB 12/01/18 Amphet Goy-Tvpfmz-W-Amphet (Adderall) 30 Mg Tablet, 30 MG PO DAILY, TAB 12/01/18 Cephalexin* (Keflex*) 500 Mg Capsule, 500 MG PO QID, CAP 10/22/14 Aspirin* (Aspirin* EC) 81 Mg Tablet.dr, 81 MG PO DAILY, TAB 10/22/14 Baclofen* (Baclofen*) 10 Mg Tablet, 10 MG PO DAILY, TAB 10/22/14 Clonazepam* (Klonopin*) 0.5 Mg Tab, 0.5 MG PO QHS PRN for SLEEP, TAB 10/22/14 Escitalopram Oxalate* (Lexapro*) 10 Mg Tablet, 10 MG PO DAILY, TAB 10/22/14 Losartan Potassium* (Losartan Potassium*) 25 Mg Tablet, 25 MG PO DAILY, TAB 10/22/14 Primary Care Provider JEANNETTE WESTFALL Dec 10, 2018 15:08
--- NOTE | 2018-12-10 15:23 | PDOCDIS ---
Discharge Instructions CONDITION [id number] Patient Condition: [id number] Stable HOME CARE INSTRUCTIONS: [id number] Diet Instructions: [id number] Regular [id number] Special Diet: [id number] Regular ACTIVITY: [id number] Activity Restrictions: [id number] Slowly Increase Activity Rest between Activity Do not Drive Do not operate Machinery Do not operate Power Tool Avoid Heavy Housework [id number] Bathing Restrictions: [id number] Sponge Bath FOLLOW UP/APPOINTMENTS Follow-up Plan - FU with Primary MD in 1 week - Call 911 or go to the nearest hospital if symptoms get worse.Patient verbalized understanding dc instructions - staff / JEANNETTE Aguiar Dec 10, 2018 15:18
== END 2018-12-10 17:20 | disposition home or self-care (01) | DRG 392 ==
LOC: E/R 11:44 → MERGE 14:03 → 6WM 14:03 → CANRESERV 15:32 → EDBEDREQSVC 17:35
PROVIDERS: ADMIT Internal Medicine; ATTEND Internal Medicine
PROC: 02H633Z Insertion of Infusion Device into Right Atrium, Percutaneous Approach (ICD-10-PCS; principal; 2018-12-05)
PROC: B244ZZZ Ultrasonography of Right Heart (ICD-10-PCS; 2018-12-05)
DX: A08.4 Viral intestinal infection, unspecified (principal); I95.89 Other hypotension; F17.210 Nicotine dependence, cigarettes, uncomplicated; E86.0 Dehydration; E87.6 Hypokalemia; D50.9 Iron deficiency anemia, unspecified; E86.1 Hypovolemia; I10 Essential (primary) hypertension; G47.419 Narcolepsy without cataplexy; N92.0 Excessive and frequent menstruation with regular cycle; R53.1 Weakness; R51 Headache
CPT/HCPCS: 36415; 36569; 70551; 71045; 76937; 80048; 80053; 81003; 81025; 83605; 83690; 83735; 84484; 85025; 85610; 85730; 87040; 87045; 87075; 87086; 87177; 87400; 90686; 93005; 96365; 96375; J0456; J0696; J0744; J1885; J2405; J3480; J7030

== ENCOUNTER 2018-12-13 20:27 | Emergency (ER) | payer SELFPAY ==
[~2018-12-13 20:27] MED LIST changes: -CEPH-443 PO
== END 2018-12-13 20:55 | disposition left against medical advice (07) ==
LOC: E/R 20:27
DX: Z53.21 Procedure and treatment not carried out due to patient leaving prior to being seen by health care provider (principal)

== ENCOUNTER 2018-12-17 00:24 | Emergency (ER) | payer BC ==
[~2018-12-17] VITALS: Ht 152.4 cm; Wt 67.9 kg
[2018-12-17 00:33] VITALS: Ht 152.4 cm; Wt 67.9 kg
[2018-12-17] MEDS ORDERED: LIDOCAINE/MYLANTA 40 ML BTL PO STA (01:43)
[2018-12-17] MEDS ORDERED: KETOROLAC 30 MG INJ IM STA (01:43)
[2018-12-17] MEDS ORDERED: BELLADONNA/PHENOBARBITAL TAB PO STA (01:43)
[2018-12-17] MEDS ORDERED: DICY10CA40 PO (02:11)
[2018-12-17] MEDS ORDERED: IBUP-1542 PO (02:11)
--- NOTE | 2018-12-17 02:30 | ERD ---
ER Documentation Chief Complaint Chief Complaint LT UPPER AP W/ NAUSEA AND DIARRHEA TODAY, RT LEG PAIN AND SWELLING X2 DAYS HPI 43-year-old woman complains of right lower extremity swelling times 1 week, she is also had a couple days of loose stools and nausea but denies vomiting. She denies fevers or chills, no recent antibiotic use, no recent travel, no chest pain or shortness of breath. Patient denies blood per rectum or melena. ROS All systems reviewed and are negative except as per history of present illness. Medications Home Meds Active Scripts Ibuprofen* (Motrin*) 600 Mg Tab, 600 MG PO Q8 PRN for PAIN AND/OR INFLAMMATION, #30 TAB Prov:BETTY MCMILLAN MD 12/17/18 Dicyclomine HCl (Dicyclomine HCl) 10 Mg Capsule, 10 MG PO BID PRN for ABDOMINAL CRAMPING, #20 CAP Prov:BETYT MCMILLAN MD 12/17/18 Loperamide Hcl* (Imodium*) 2 Mg Capsule, 2 MG PO QID PRN for DIARRHEA, #20 CAP MAX 16 mg/day Prov:TEJAS MORALES MD 12/01/18 Ondansetron (Ondansetron Odt) 4 Mg Tab.rapdis, 4 MG PO Q6H PRN for NAUSEA AND/OR VOMITING, #10 TAB Prov:TEJAS MORALES MD 12/01/18 Cyclobenzaprine Hcl* (Cyclobenzaprine Hcl*) 10 Mg Tablet, 10 MG PO TID, #15 TAB Prov:ANA LAURA HERNANDEZ PA-C 03/27/18 Hydrocodone/Acetaminophen ([place] 5-325 Tablet) 1 Each Tablet, 1 TAB PO Q6H PRN for PAIN, #7 TAB Prov:ANA LAURA HERNANDEZ PA-C 03/27/18 Naproxen* (Naprosyn*) 500 Mg Tablet, 500 MG PO BID PRN for PAIN AND/OR INFLAMMATION, #30 TAB Prov:ANA LAURA HERNANDEZ PA-C 03/27/18 Reported Medications Ergocalciferol (Vitamin D2) (VITAMIN D2) 2,000 Unit Tablet, 2000 UNIT PO, TAB 12/01/18 Iron,Carbonyl/Vit C/Vit B12/Fa (IRON 100 PLUS TABLET) 1 Each Tablet, 1 EACH PO, TAB 12/01/18 Ibuprofen* (Ibuprofen*) 800 Mg Tab, 800 MG PO BID PRN for PAIN, TAB 12/01/18 Amphet Idy-Jhaqjn-P-Amphet (Adderall) 30 Mg Tablet, 30 MG PO DAILY, TAB 12/01/18 Aspirin* (Aspirin* EC) 81 Mg Tablet.dr, 81 MG PO DAILY, TAB 10/22/14 Baclofen* (Baclofen*) 10 Mg Tablet, 10 MG PO DAILY, TAB 10/22/14 Clonazepam* (Klonopin*) 0.5 Mg Tab, 0.5 MG PO QHS PRN for SLEEP, TAB 10/22/14 Escitalopram Oxalate* (Lexapro*) 10 Mg Tablet, 10 MG PO DAILY, TAB 10/22/14 Losartan Potassium* (Losartan Potassium*) 25 Mg Tablet, 25 MG PO DAILY, TAB 10/22/14 Discontinued Reported Medications Cephalexin* (Keflex*) 500 Mg Capsule, 500 MG PO QID, CAP 10/22/14 Allergies Allergies: Coded Allergies: No Known Drug Allergies (Verified Allergy, Mild, 03/27/18) No Known Allergies (Verified Allergy, Unknown, 12/07/18) PMhx/Soc Hypertension History of Surgery: Yes (c/section x3) Anesthesia Reaction: No Hx Neurological Disorder: Yes (minor stroke/TIA 2013) Hx Respiratory Disorders: Yes (PNA) Hx Cardiac Disorders: Yes (htn) Hx Psychiatric Problems: Yes (PTSD, anxiety) Hx Miscellaneous Medical Probl: Yes (hypoglycemia) Hx Alcohol Use: No Hx Substance Use: No Hx Tobacco Use: No Smoking Status: Current some day smoker FmHx Family History: No diabetes Physical Exam Vitals Vital Signs Date Temp Pulse Resp B/P (MAP) Pulse Ox O2 O2 Flow FiO2 Time Delivery Rate 12/17/18 97.8 88 18 105/67 98 00:33 (80) Physical Exam Const: No acute distress Head: Atraumatic Eyes: Normal Conjunctiva ENT: Normal External Ears, Nose and Mouth. Neck: Full range of motion. No meningismus. Resp: Clear to auscultation bilaterally Cardio: Regular rate and rhythm, no murmurs Abd: Soft, non tender, non distended. Skin: No petechiae or rashes Back: No midline or flank tenderness Ext: No cyanosis, 1+ peripheral edema to the right lower extremity, left lower extremity is without edema, no popliteal cords sign, no Homans sign Neur: Awake and alert x3, no focal deficits or facial asymmetry Psych: Normal Mood and Affect Results 24 hrs Current Medications Medications Dose Sig/Gisele Start Time Status Last (Trade) Ordered Route PRN Stop Time Admin Dose Reason Admin Ketorolac 30 mg ONCE STAT 12/17/18 DC Tromethamine IM 01:43 (Toradol) 12/17/18 01:45 40 ml ONCE STAT 12/17/18 DC 12/17/18 Miscellaneous PO 01:43 01:52 Medication 12/17/18 01:45 (Gi Cocktail (2)) [place]/ 2 tab ONCE STAT 12/17/18 DC 12/17/18 Phenobarbital PO 01:43 01:51 () 12/17/18 01:45 Procedures/MDM I administered Toradol 30 mg IM x1 and a GI cocktail Doppler ultrasound was negative for deep vein thrombosis of the right lower extremity Differential diagnoses considered, included but not limited to acute coronary syndrome, pulmonary embolism, aortic dissection, abdominal aortic aneurysm, sepsis, stroke, meningitis, encephalitis, pneumonia, appendicitis, cholecystitis, bowel obstruction, pyelonephritis, nephrolithiasis, cystitis, as well as metabolic, hematologic, and electrolyte abnormalities. As well as abscess, cellulitis, fractures, and dislocations. Patient feels much better at this time, and vital signs are normal, symptoms have improved. I did give strict instructions to return to the ED if symptoms continue or worsen, patient will otherwise follow-up with primary care physician. Patient understood instructions and agreed to plan. Disclaimer: Inadvertent spelling and grammatical errors are likely due to EHR/dictation software use and do not reflect on the overall quality of patient care. Also, please note that the electronic time recorded on this note does not necessarily reflect the actual time of the patient encounter. Departure Diagnosis: Primary Impression: Diarrhea Diarrhea type: unspecified type Qualified Codes: R19.7 - Diarrhea, unspecified Additional Impression: Peripheral edema Condition: Good Patient Instructions: Diarrhea, Viral (Child) (Adult), Peripheral Edema, Unilateral BETTY MCMILLAN MD Dec 17, 2018 02:30
[2018-12-17 04:39] VITALS: BP 108/66; PULSE 68; RESP 16
== END 2018-12-17 04:39 | disposition home or self-care (01) ==
LOC: E/R 00:24
DX: R19.7 Diarrhea, unspecified (principal); R60.9 Edema, unspecified; R40.2142 Coma scale, eyes open, spontaneous, at arrival to emergency department; R40.2252 Coma scale, best verbal response, oriented, at arrival to emergency department; R40.2362 Coma scale, best motor response, obeys commands, at arrival to emergency department; I10 Essential (primary) hypertension; F17.210 Nicotine dependence, cigarettes, uncomplicated; Z86.73 Personal history of transient ischemic attack (TIA), and cerebral infarction without residual deficits; Z79.82 Long term (current) use of aspirin
CPT/HCPCS: 93971; 99284; J1885; Z7610

== ENCOUNTER 2019-02-21 00:37 | Emergency (ER) | payer BC ==
[~2019-02-21] VITALS: Ht 152.4 cm; Wt 68.9 kg
[~2019-02-21 00:37] MED LIST changes: +DICY10CA40 PO; +IBUP-1542 PO
[2019-02-21 00:40] VITALS: BP 161/85; PULSE 110; RESP 20; Ht 152.4 cm; Wt 68.9 kg
--- NOTE | 2019-02-21 01:51 | ERD ---
ER Documentation Chief Complaint Chief Complaint CHEST PAIN AND SOB X TODAY. HX ANGINA. HPI Is a 43 female, with chest pain shortness of breath today. Patient has history of angina. Upon arrival to the bed, patient is decided to eloped prior to full treatment. Upon elopement, patient is alert and oriented x4 with goal oriented speech ROS All systems reviewed and are negative except as per history of present illness. Medications Home Meds Active Scripts Ibuprofen* (Motrin*) 600 Mg Tab, 600 MG PO Q8 PRN for PAIN AND/OR INFLAMMATION, #30 TAB Prov:BETTY MCMILLAN MD 12/17/18 Dicyclomine HCl (Dicyclomine HCl) 10 Mg Capsule, 10 MG PO BID PRN for ABDOMINAL CRAMPING, #20 CAP Prov:BETTY MCMILLAN MD 12/17/18 Loperamide Hcl* (Imodium*) 2 Mg Capsule, 2 MG PO QID PRN for DIARRHEA, #20 CAP MAX 16 mg/day Prov:TEJAS MORALES MD 12/01/18 Ondansetron (Ondansetron Odt) 4 Mg Tab.rapdis, 4 MG PO Q6H PRN for NAUSEA AND/OR VOMITING, #10 TAB Prov:TEJAS MORALES MD 12/01/18 Cyclobenzaprine Hcl* (Cyclobenzaprine Hcl*) 10 Mg Tablet, 10 MG PO TID, #15 TAB Prov:ANA LAURA HERNANDEZ PA-C 03/27/18 Hydrocodone/Acetaminophen ([place] 5-325 Tablet) 1 Each Tablet, 1 TAB PO Q6H PRN for PAIN, #7 TAB Prov:ANA LAURA HERNANDEZ PA-C 03/27/18 Naproxen* (Naprosyn*) 500 Mg Tablet, 500 MG PO BID PRN for PAIN AND/OR INFLAMMATION, #30 TAB Prov:ANA LAURA HERNANDEZ PA-C 03/27/18 Reported Medications Ergocalciferol (Vitamin D2) (VITAMIN D2) 2,000 Unit Tablet, 2000 UNIT PO, TAB 12/01/18 Iron,Carbonyl/Vit C/Vit B12/Fa (IRON 100 PLUS TABLET) 1 Each Tablet, 1 EACH PO, TAB 12/01/18 Ibuprofen* (Ibuprofen*) 800 Mg Tab, 800 MG PO BID PRN for PAIN, TAB 12/01/18 Amphet Rcg-Ulyrjb-G-Amphet (Adderall) 30 Mg Tablet, 30 MG PO DAILY, TAB 12/01/18 Aspirin* (Aspirin* EC) 81 Mg Tablet.dr, 81 MG PO DAILY, TAB 10/22/14 Baclofen* (Baclofen*) 10 Mg Tablet, 10 MG PO DAILY, TAB 10/22/14 Clonazepam* (Klonopin*) 0.5 Mg Tab, 0.5 MG PO QHS PRN for SLEEP, TAB 10/22/14 Escitalopram Oxalate* (Lexapro*) 10 Mg Tablet, 10 MG PO DAILY, TAB 10/22/14 Losartan Potassium* (Losartan Potassium*) 25 Mg Tablet, 25 MG PO DAILY, TAB 10/22/14 Allergies Allergies: Coded Allergies: No Known Drug Allergies (Verified Allergy, Mild, 03/27/18) No Known Allergies (Verified Allergy, Unknown, 12/07/18) PMhx/Soc History of Surgery: Yes (c/section x3) Anesthesia Reaction: No Hx Neurological Disorder: Yes (minor stroke/TIA 2013) Hx Respiratory Disorders: Yes (PNA) Hx Cardiac Disorders: Yes (htn) Hx Psychiatric Problems: Yes (PTSD, anxiety) Hx Miscellaneous Medical Probl: Yes (hypoglycemia) Hx Alcohol Use: No Hx Substance Use: No Hx Tobacco Use: No Smoking Status: Never smoker Physical Exam Vitals Vital Signs Date Temp Pulse Resp B/P (MAP) Pulse Ox O2 O2 Flow FiO2 Time Delivery Rate 02/21/19 99.1 110 20 161/85 100 00:40 (110) Physical Exam Const: No acute distress Head: Atraumatic Eyes: Normal Conjunctiva ENT: Normal External Ears, Nose and Mouth. Neck: Full range of motion. No meningismus. Resp: Clear to auscultation bilaterally Cardio: Regular rate and rhythm, no murmurs Abd: Soft, non tender, non distended. Normal bowel sounds Skin: No petechiae or rashes Back: No midline or flank tenderness Ext: No cyanosis, or edema Neur: Awake and alert Psych: Normal Mood and Affect Procedures/MDM Medical decision makin-year-old female with complaint of chest pain. Patient eloped prior to full evaluation. Upon arrival, patient is alert and oriented x4 with goal oriented speech and good decision-making capacity and ability to negotiate the community. Departure Diagnosis: Primary Impression: Chest pain Chest pain type: unspecified Qualified Codes: R07.9 - Chest pain, unspecified Condition: Stable BLESSING BOONE Feb 21, 2019 01:51
== END 2019-02-21 01:44 | disposition left against medical advice (07) ==
LOC: E/R 00:37
DX: R07.9 Chest pain, unspecified (principal); I10 Essential (primary) hypertension; Z79.82 Long term (current) use of aspirin; Z86.73 Personal history of transient ischemic attack (TIA), and cerebral infarction without residual deficits
CPT/HCPCS: 93005

== ENCOUNTER 2019-05-04 18:03 | Emergency (ER) | payer BC ==
[~2019-05-04] VITALS: Ht 160 cm; Wt 61.4 kg
[2019-05-04 18:10] VITALS: Ht 160 cm; Wt 61.4 kg
[2019-05-04] MEDS ORDERED: KETOROLAC 60 MG INJ IM STA (18:55)
[2019-05-04] MEDS ORDERED: DEXAMETHASONE 10 MG/ML 1 ML INJ IM ONE (19:00)
[2019-05-04] MEDS ORDERED: TRAM50TA2 PO (20:28)
[2019-05-04] MEDS ORDERED: IBUP800T48 PO (20:28)
[2019-05-04 20:52] VITALS: BP 164/87; PULSE 67; RESP 16
--- NOTE | 2019-05-04 21:55 | ERD ---
ER Documentation Chief Complaint Chief Complaint l LEG PAIN AFTER FALL TODAY HPI History of Present Illness: 44-year-old female who denies a past medical history coming in today with complaints of left knee pain. Patient reports that she had a fall approximately 3 weeks ago in which she twisted her knee. Patient reports increasing exacerbation of pain in the past 3 days. At home pharmacological/nonpharmacological treatment for symptoms: Denies Denies social concerns; Denies recent foreign travel ROS All systems reviewed and are negative except as per history of present illness. Medications Home Meds Active Scripts Tramadol HCl (Tramadol HCl) 50 Mg Tablet, 50 MG PO Q8 for MODERATE-SEVERE PAIN, #10 TAB Take this medication for moderate to severe pain if ibuprofen is not working. Prov:ROSARIO LEVINE NP 05/04/19 Ibuprofen* (Motrin*) 800 Mg Tab, 800 MG PO Q6H PRN for PAIN/SWELLING/INFLAMMATION, #30 TAB Prov:ROSARIO LEVINE NP 05/04/19 Ibuprofen* (Motrin*) 600 Mg Tab, 600 MG PO Q8 PRN for PAIN AND/OR INFLAMMATION, #30 TAB Prov:BETTY MCMILLAN MD 12/17/18 Dicyclomine HCl (Dicyclomine HCl) 10 Mg Capsule, 10 MG PO BID PRN for ABDOMINAL CRAMPING, #20 CAP Prov:BETTY MCMILLAN MD 12/17/18 Loperamide Hcl* (Imodium*) 2 Mg Capsule, 2 MG PO QID PRN for DIARRHEA, #20 CAP MAX 16 mg/day Prov:TEJAS MORALES MD 12/01/18 Ondansetron (Ondansetron Odt) 4 Mg Tab.rapdis, 4 MG PO Q6H PRN for NAUSEA AND/OR VOMITING, #10 TAB Prov:TEJAS MORALES MD 12/01/18 Cyclobenzaprine Hcl* (Cyclobenzaprine Hcl*) 10 Mg Tablet, 10 MG PO TID, #15 TAB Prov:ANA LAURA HERNANDEZ PA-C 03/27/18 Hydrocodone/Acetaminophen ([place] 5-325 Tablet) 1 Each Tablet, 1 TAB PO Q6H PRN for PAIN, #7 TAB Prov:ANA LAURA HERNANDEZ PA-C 03/27/18 Naproxen* (Naprosyn*) 500 Mg Tablet, 500 MG PO BID PRN for PAIN AND/OR INFLAMMATION, #30 TAB Prov:ANA LAURA HERNANDEZ PA-C 03/27/18 Reported Medications Ergocalciferol (Vitamin D2) (VITAMIN D2) 2,000 Unit Tablet, 2000 UNIT PO, TAB 12/01/18 Iron,Carbonyl/Vit C/Vit B12/Fa (IRON 100 PLUS TABLET) 1 Each Tablet, 1 EACH PO, TAB 12/01/18 Ibuprofen* (Ibuprofen*) 800 Mg Tab, 800 MG PO BID PRN for PAIN, TAB 12/01/18 Amphet Geh-Jleeeg-J-Amphet (Adderall) 30 Mg Tablet, 30 MG PO DAILY, TAB 12/01/18 Aspirin* (Aspirin* EC) 81 Mg Tablet.dr, 81 MG PO DAILY, TAB 10/22/14 Baclofen* (Baclofen*) 10 Mg Tablet, 10 MG PO DAILY, TAB 10/22/14 Clonazepam* (Klonopin*) 0.5 Mg Tab, 0.5 MG PO QHS PRN for SLEEP, TAB 10/22/14 Escitalopram Oxalate* (Lexapro*) 10 Mg Tablet, 10 MG PO DAILY, TAB 10/22/14 Losartan Potassium* (Losartan Potassium*) 25 Mg Tablet, 25 MG PO DAILY, TAB 10/22/14 Allergies Allergies: Coded Allergies: No Known Allergies (Verified Allergy, Unknown, 12/07/18) PMhx/Soc History of Surgery: Yes (c/section x3) Anesthesia Reaction: No Hx Neurological Disorder: Yes (minor stroke/TIA 2013) Hx Respiratory Disorders: Yes (PNA) Hx Cardiac Disorders: Yes (htn) Hx Psychiatric Problems: Yes (PTSD, anxiety) Hx Miscellaneous Medical Probl: Yes (hypoglycemia) Hx Alcohol Use: No Hx Substance Use: No Hx Tobacco Use: No Smoking Status: Never smoker FmHx Family History: diabetes, coronary disease Physical Exam Vitals Vital Signs Date Temp Pulse Resp B/P (MAP) Pulse Ox O2 O2 Flow FiO2 Time Delivery Rate 05/04/19 98.0 67 16 164/87 99 Room Air 20:52 (112) 05/04/19 98.8 74 16 133/79 98 18:10 (97) Physical Exam Const: No acute distress, afebrile Head: Atraumatic Eyes: Normal Conjunctiva ENT: Normal External Ears, Nose and Mouth. Neck: Full range of motion. No meningismus. Resp: Clear to auscultation bilaterally Cardio: Regular rate and rhythm, no murmurs Abd: Soft, non tender, non distended. No guarding, no masses, no rigidity Skin: No petechiae or rashes Back: No midline or flank tenderness Ext: No cyanosis; left lower extremity: Tenderness to palpation over patellar, mild swelling noted, neurovascularly intact distally Neur: Awake and alert x3, speaking in clear sentences, no focal deficits or facial asymmetry Psych: Normal Mood and Affect Results 24 hrs Laboratory Tests Test 05/04/19 18:59 POC Beta HCG, Qualitative NEGATIVE Current Medications Medications Dose Sig/Gisele Start Time Status Last (Trade) Ordered Route PRN Stop Time Admin Dose Reason Admin Ketorolac 60 mg ONCE STAT 05/04/19 DC 05/04/19 Tromethamine IM 18:55 19:13 (Toradol) 05/04/19 18:56 8 mg ONCE ONCE 05/04/19 DC 05/04/19 Dexamethasone IM 19:00 19:13 (Decadron) 05/04/19 19:01 Procedures/MDM ED course includes a thorough examination and history. Medications: Ketorolac, dexamethasone Imaging: Labs: Urine Low suspicion for life-threatening medical emergency. Low suspicion for orthopedic emergency that requires hospitalization or immediate surgical intervention. Low suspicion for infectious process, patient currently afebrile without antipyretics. Otherwise healthy patient presenting with constellation of symptoms likely representing suprapatellar effusion of left knee secondary to injury of left knee as characterized by history, physical exam findings. Lab findings, radiology findings. Urine negative. X-ray results revealing: IMPRESSION: 1. No acute fracture or dislocation. 2. Small suprapatellar effusion. RPTAT: HFN .Wilson Meléndez MD, MD Date Time Electronically viewed and signed by .Wilson Meléndez MD, on 05/04/2019 20:11 Patient reassessment 2021: Patient with decrease in pain after medication administration. Results reviewed. Orders for Vincent wrap application before discharge. Patient hemodynamically stable. No respiratory distress, otherwise relatively well appearing and nontoxic. Disposition given. Patient educated on diagnoses, prescriptions, follow-up care, return precautions. Strict return precautions given for worsening condition; questions answered discharge. Patient verbalized understanding of discharge instructions, follow-up care, re turn precautions Disposition for discharge with followup in 2 days with PCP/clinic. Departure Diagnosis: Primary Impression: Injury of left knee Additional Impression: Suprapatellar effusion of knee Condition: Stable Patient Instructions: Knee Effusion Referrals: [facility] YOU HAVE RECEIVED A MEDICAL SCREENING EXAM AND THE RESULTS INDICATE THAT YOU DO NOT HAVE A CONDITION THAT REQUIRES URGENT TREATMENT IN THE EMERGENCY DEPARTMENT. FURTHER EVALUATION AND TREATMENT OF YOUR CONDITION CAN WAIT UNTIL YOU ARE SEEN IN YOUR DOCTORS OFFICE WITHIN THE NEXT 1-2 DAYS. IT IS YOUR RESPONSIBILITY TO MAKE AN APPOINTMENT FOR FOLOW-UP CARE. IF YOU HAVE A PRIMARY DOCTOR --you should call your primary doctor and schedule an appointment IF YOU DO NOT HAVE A PRIMARY DOCTOR YOU CAN CALL OUR PHYSICIAN REFERRAL HOTLINE AT IF YOU CAN NOT AFFORD TO SEE A PHYSICIAN YOU CAN CHOSE FROM THE FOLLOWING [facility] [address] [place] [facility]. [facility] [address] [employer] [employer] [facility] [address] [facility] [facility] [address] [facility] [facility] [address] [facility]. [facility]. [address] [facility]. [facility] YOU HAVE RECEIVED A MEDICAL SCREENING EXAM AND THE RESULTS INDICATE THAT YOU DO NOT HAVE A CONDITION THAT REQUIRES URGENT TREATMENT IN THE EMERGENCY DEPARTMENT. FURTHER EVALUATION AND TREATMENT OF YOUR CONDITION CAN WAIT UNTIL YOU ARE SEEN IN YOUR DOCTORS OFFICE WITHIN THE NEXT 1-2 DAYS. IT IS YOUR RESPONSIBILITY TO MAKE AN APPOINTMENT FOR FOLOW-UP CARE. IF YOU HAVE A PRIMARY DOCTOR --you should call your primary doctor and schedule and appointment IF YOU DO NOT HAVE A PRIMARY DOCTOR YOU CAN CALL OUR PHYSICIAN REFERRAL HOTLINE AT . IF YOU CAN NOT AFFORD TO SEE A PHYSICIAN YOU CAN CHOSE FROM THE FOLLOWING [facility]: [facility] [address] [place] [address] [facility] [address] [place] [address] [facility] [address] [place] [address] Additional Instructions: Thank you very much for allowing us to participate in your care. Your health and safety is our top priority at [facility]. It is important to read all discharge instructions and education provided in your discharge packet. *Keep Vincent wrap applied to decrease inflammation/fluid around the knee. If you continue to have persistent pain, your primary care doctor for possible further imaging. X-ray does not show any broken bones. Unable to visualize if there is tendon or ligament damage; MRI would be needed to identify this type of injury* Call your primary care doctor TOMORROW for an appointment during the next 2-4 days and bring all the information and medications prescribed. Have prescriptions filled and follow precisely the directions on the label. --Ibuprofen is a medication that will help with pain/inflammation. At the dosage of 600 to 800 mg, this will help with inflammation/swelling. Take this medication as prescribed. -Tramadol is an opiate pain medication; take this medication as needed for moderate to severe pain. No operating of heavy machinery while taking this medication. It may cause drowsiness. If the symptoms get worse and your provider is unavailable, return to the Emergency Department immediately. ROSARIO LEVINE NP May 04, 2019 21:55
== END 2019-05-04 20:51 | disposition home or self-care (01) ==
LOC: FTE 18:03
DX: S89.92XA Unspecified injury of left lower leg, initial encounter (principal); I10 Essential (primary) hypertension; W18.39XA Other fall on same level, initial encounter; Y92.9 Unspecified place or not applicable; Z79.82 Long term (current) use of aspirin; Z86.73 Personal history of transient ischemic attack (TIA), and cerebral infarction without residual deficits
CPT/HCPCS: 73562; 81025; 96372; 99284; J1100; J1885

== ENCOUNTER 2019-09-25 18:02 | Emergency (ER) | payer SELFPAY ==
[~2019-09-25 18:02] MED LIST changes: +IBUP800T48 PO; +NPH10OT BOTH EARS; +TRAM50TA2 PO
== END 2019-09-25 18:13 | disposition left against medical advice (07) ==
LOC: E/R 18:02
DX: Z53.21 Procedure and treatment not carried out due to patient leaving prior to being seen by health care provider (principal)

== ENCOUNTER 2019-09-26 12:36 | Emergency (ER) | payer SELFPAY | END 2019-09-26 15:11 | disposition left against medical advice (07) | LOC: E/R 12:36 | DX: Z53.21 Procedure and treatment not carried out due to patient leaving prior to being seen by health care provider (principal) ==

== ENCOUNTER 2019-09-27 04:21 | Emergency (ER) | payer BC, OTHER ==
[~2019-09-27] VITALS: Ht 152.4 cm; Wt 70.3 kg
[2019-09-27 04:27] VITALS: BP 127/72; PULSE 118; RESP 20; Ht 152.4 cm; Wt 70.3 kg
== END 2019-09-27 05:20 | disposition home or self-care (01) ==
LOC: FTE 04:21
DX: H92.03 Otalgia, bilateral (principal); I10 Essential (primary) hypertension; Z86.73 Personal history of transient ischemic attack (TIA), and cerebral infarction without residual deficits; Z87.891 Personal history of nicotine dependence; Z79.82 Long term (current) use of aspirin
CPT/HCPCS: 99282